=== PATIENT | female | born 1950 | race African-American/Black ===

== ENCOUNTER 2018-10-21 09:31 | Day surgery (SDC) | payer BC ==
[2018-10-16 14:56] VITALS: BMI 23.1
[2018-10-21] MEDS ORDERED: PROPOFOL 20 ML ONE ×3 (10:00→11:46)
[2018-10-21 12:10] VITALS: TEMP 97.5
[2018-10-21 12:26] VITALS: BP 122/72; PULSE 66
--- NOTE | 2018-10-23 16:03 | PATH ---
Surgical Pathology Report Patient Name: BUSTER CAMACHO [facility]. Rec. #: [id number] /Age/Gender: 1950 (Age: 68) / F Account: [id number] Location: [facility] Taken: 10/21/2018 Received: 10/21/2018 Reported: 10/23/2018 Physicians: Galileo Hopper M.D. Specimen(s) Received A: BX RIGHT COLON POLYP B: TRANSVERSE COLON POLYP C: SIGMOID POLYPS D: BX OF RECTOSIGMOID POLYPS Clinical History History of polyps Postoperative diagnosis: Diverticulosis, polyps Final Diagnosis A. PROXIMAL RIGHT COLON, POLYP, BIOPSY: TUBULAR ADENOMA. B. TRANSVERSE COLON, POLYP, POLYPECTOMY: TUBULAR ADENOMA. C. SIGMOID, POLYPS, POLYPECTOMY: HYPERPLASTIC POLYPS. D. RECTOSIGMOID, POLYPS, POLYPECTOMY: HYPERPLASTIC POLYPS. Electronically Signed Ruth Rios M.D. Gross Description A. Received in formalin, labeled "biopsy proximal right colon polyp" are 2 frazier, irregular portions of soft tissue averaging 0.2 cm. in greatest dimension. The specimens are submitted in toto in one cassette. B. Received in formalin, labeled "transverse colon polyp" is a frazier, irregular portion of soft tissue measuring 0.4 cm. in greatest dimension. The specimen is submitted in toto in one cassette. C. Received in formalin, labeled "sigmoid polyps" are 5 frazier, polypoid portions of soft tissue ranging from 0.8-1.0 cm. in greatest dimension. The specimens are submitted in toto in one cassette. D. Received in formalin, labeled "biopsy rectal sigmoid polyps" are 3 frazier, irregular to polypoid portions of soft tissue ranging from 0.4-1.1 cm. in greatest dimension. The specimens are submitted in toto in one cassette. 10/22/2018 saudi10/22/2018
== END 2018-10-21 12:27 | disposition home or self-care (01) ==
LOC: FASU-ENDO 09:31
PROVIDERS: ATTEND Internal Medicine Gastroenterology
PROC: 0DBN8ZX Excision of Sigmoid Colon, Via Natural or Artificial Opening Endoscopic, Diagnostic (ICD-10-PCS; 2018-10-21)
PROC: 0DBK8ZX Excision of Ascending Colon, Via Natural or Artificial Opening Endoscopic, Diagnostic (ICD-10-PCS; 2018-10-21)
PROC: 0DBP8ZX Excision of Rectum, Via Natural or Artificial Opening Endoscopic, Diagnostic (ICD-10-PCS; principal; 2018-10-21 11:04)
DX: Z86.010 Personal history of colon polyps (principal); K57.30 Diverticulosis of large intestine without perforation or abscess without bleeding; K64.8 Other hemorrhoids; D12.2 Benign neoplasm of ascending colon; D12.3 Benign neoplasm of transverse colon; D12.5 Benign neoplasm of sigmoid colon; D12.7 Benign neoplasm of rectosigmoid junction
CPT/HCPCS: 88305-TC

== ENCOUNTER 2019-01-18 13:50 | Emergency (ER) | payer BC ==
--- NOTE | 2019-01-18 13:51 | PDOC ---
History of Present Illness - General History Source: Patient Exam Limitations: No Limitations - History of Present Illness Initial Comments: 01/18/19 14:14 The patient is a 68 year old female, with a significant past medical history of seasonal/environmental rhinitis, osteoporosis, partial gastrectomy who presents to the emergency department with knee pain since this morning. The patient notes she was laying in bed, turned, and felt something weird on her knee. The patient reports she went to the bathroom afterwards and could not walk back. The patient reports her pain is aggravated when standing, walking, and straightening knee to walk. The patient notes she never experienced anything like this before. Allergies: NKDA, cats, dust, mold, trees. Past surgical history: PARTIAL GASTRECTOMY 1995 Social history: social drinker. Current everyday smoker. PCP: Ruthy Martines <Andrew Reeves - Last Filed: 01/18/19 14:14> <Fanny Bolden - Last Filed: 01/18/19 14:59> - General Chief Complaint: Pain Stated Complaint: RT KNEE PAIN Time Seen by Provider: 01/18/19 13:51 Past History <Andrew Reeves - Last Filed: 01/18/19 14:14> - Past Medical History Anemia: No (IN THE PAST ,HAS RECEIVED BLOOD 1995) Asthma: No Cancer: No Cardiac Disorders: No CVA: No COPD: No CHF: No Dementia: No Diabetes: No GI Disorders: Yes (H/O POLYPS) Disorders: No HTN: No Hypercholesterolemia: No Liver Disease: No Seizures: No Thyroid Disease: No - Surgical History Abdominal Surgery: Yes (PARTIAL GASTRECTOMY 1995,HAD "HOLE IN STOMACH") Appendectomy: No Cardiac Surgery: No Cholecystectomy: No GI Surgery: Yes (PARTIAL GASTRECTOMY 1995) Lung Surgery: No Neurologic Surgery: No Orthopedic Surgery: No - Suicide/Smoking/Psychosocial Hx Smoking History: Current every day smoker Have you smoked in the past 12 months: Yes Number of Cigarettes Smoked Daily: 7 'Breaking Loose' booklet given: 02/27/15 Hx Alcohol Use: Yes (2/DAY) Drug/Substance Use Hx: No Substance Use Type: Alcohol Hx Substance Use Treatment: No <Fanny Bolden - Last Filed: 01/18/19 14:59> - Past Medical History Allergies/Adverse Reactions: Allergies Allergy/AdvReac Type Severity Reaction Status Date / Time No Known Drug Allergies Allergy Verified 01/18/19 13:51 CATS Allergy Mild Itching Uncoded 01/18/19 13:51 DUST Allergy Mild Itching Uncoded 01/18/19 13:51 MILDEW Allergy Mild Itching Uncoded 01/18/19 13:51 MOLD Allergy Mild Itching Uncoded 01/18/19 13:51 TREES Allergy Mild Itching Uncoded 01/18/19 13:51 Home Medications: Ambulatory Orders Ascorbic Acid [Vitamin C] 1,000 mg PO DAILY 10/03/13 Calcium 500 mg PO DAILY 10/03/13 Cholecalciferol (Vitamin D3) [Vitamin D] 1,000 unit PO DAILY 10/03/13 Multivitamin [Multi-Day Vitamins] 1 tab PO DAILY 10/03/13 Cetirizine HCl/Pseudoephedrine [Zyrtec-D Tablet -] 1 tab PO DAILY 02/27/15 Magnesium 200 mg PO DAILY 10/16/18 [place]-3 Fatty Acids/Fish Oil [Fish Oil 1,000 mg Capsule] 1 each PO DAILY Potassium Gluconate [Potassium] 99 mg PO DAILY 10/16/18 Acetaminophen [Tylenol] 650 mg PO ASDIR 01/18/19 Ibuprofen [Advil -] 200 mg PO ASDIR 01/18/19 Review of Systems - Review of Systems Able to Perform ROS?: Yes Comments:: 01/18/19 14:14 GENERAL/CONSTITUTIONAL: No fever or chills. No weakness. HEAD, EYES, EARS, NOSE AND THROAT: No change in vision. No ear pain or discharge. No sore throat. MUSCULOSKELETAL: (+) knee pain. No joint or muscle swelling. No neck or back pain. SKIN: No rash NEUROLOGIC: No headache, vertigo, loss of consciousness, or change in strength/ sensation. HEMATOLOGIC/LYMPHATIC: No anemia, easy bleeding, or history of blood clots. ALLERGIC/IMMUNOLOGIC: No hives or skin allergy. <Andrew Reeves - Last Filed: 01/18/19 14:14> *Physical Exam - Vital Signs Last Vital Signs Temp Pulse Resp BP Pulse Ox 98.7 F 97 H 18 154/91 98 01/18/19 13:50 01/18/19 13:50 01/18/19 13:50 01/18/19 13:50 01/18/19 13:50 <Andrew Reeves - Last Filed: 01/18/19 14:14> - Physical Exam Comments: GENERAL: Awake, alert, and fully oriented, in no acute distress HEAD: No signs of trauma EYES: PERRLA, EOMI, sclera anicteric, conjunctiva clear EXTREMITIES: R knee with pain elicited upon standing. Slight laxity of LCL, but no pain on stressing the ligament. MCL, ACL, and PCL intact. Rehana's test negative. no effusion. Remainder of extremities with normal range of motion, no edema. No clubbing or cyanosis. No cords, erythema, or tenderness NEUROLOGICAL: Cranial nerves II through XII grossly intact. Normal speech, normal gait. Motor and sensation intact SKIN: Warm, Dry, normal turgor, no rashes or lesions noted. <Fanny Bolden - Last Filed: 01/18/19 14:59> Moderate Sedation - Procedure Monitoring Vital Signs: Procedure Monitoring Vital Signs Temperature 98.7 F 01/18/19 13:50 Pulse Rate 97 H 01/18/19 13:50 Respiratory Rate 18 01/18/19 13:50 Blood Pressure 154/91 01/18/19 13:50 O2 Sat by Pulse Oximetry (%) 98 01/18/19 13:50 <Andrew Reeves - Last Filed: 01/18/19 14:14> Procedures - Splinting Splint Location: Right: Knee Pre-Proc Neuro Vasc Exam: normal Post-Proc Neuro Vasc Exam: normal Len Bandage: 3" Progress: 01/18/19 14:59 Pt crutch trained to assist with weight bearing. <Fanny Bolden - Last Filed: 01/18/19 14:59> *DC/Admit/Observation/Transfer - Attestations Scribe Attestion: 01/18/19 14:15 Documentation prepared by Andrew Reeves, acting as medical pathologist for Fanny Bolden MD, MD <Andrew Reeves - Last Filed: 01/18/19 14:14> <Fanny Bolden - Last Filed: 01/18/19 14:59> Diagnosis at time of Disposition: Knee sprain Qualifiers: Encounter type: initial encounter Involved ligament of knee: unspecified ligament Laterality: unspecified laterality Qualified Code(s): S83.90XA - Sprain of unspecified site of unspecified knee, initial encounter - Discharge Dispostion Disposition: HOME Condition at time of disposition: Stable - Referrals - Patient Instructions Printed Discharge Instructions: DI for Knee Sprain, DI for Knee Pain - Post Discharge Activity
[2019-01-18 14:00] VITALS: BP 154/91; PULSE 97; TEMP 98.7; BMI 23.3
[2019-01-18] MEDS ORDERED: ACETAMINOPHEN 500 MG TABLET (FP) PO ONE (14:06)
[2019-01-18] MEDS ORDERED: ACETAMINOPHEN 500 MG TABLET (FP) ONE (14:21)
[2019-01-18] MEDS ORDERED: oxyCODONE HCL 5 MG TABLET PO ONE (14:29)
[2019-01-18] MEDS ORDERED: oxyCODONE HCL 5 MG TABLET ONE (14:35)
== END 2019-01-18 15:05 | disposition home or self-care (01) ==
LOC: FER 13:50
DX: S83.90XA Sprain of unspecified site of unspecified knee, initial encounter (principal); F17.210 Nicotine dependence, cigarettes, uncomplicated
CPT/HCPCS: 73562-TC-RT-FY; 99283-25

== ENCOUNTER 2022-05-18 06:14 | Day surgery (SDC) | payer OTHER ==
[2022-05-12 16:05] VITALS: BMI 19.4
[2022-05-18] MEDS: CYCLOPENTOLATE 2% OPHTH SOLN 2 ML BOTTLE ONE ×3 (07:15→07:25)
[2022-05-18] MEDS: CIPROFLOXACIN 0.3% EYE DROPS 5 ML BOTTLE ONE ×3 (07:15→07:25)
[2022-05-18] MEDS: PHENYLEPHRINE 2.5% OPHTH SOLN 15 ML BOTTLE ONE ×3 (07:15→07:25)
[2022-05-18] MEDS: TROPICAMIDE 1% OPHTH SOLN 15 ML BOTTLE ONE ×3 (07:15→07:25)
[2022-05-18] MEDS ORDERED: EPINEPHrine/PF 1 MG/1 ML (1:1,000) AMPULE ONE (07:22)
[2022-05-18] MEDS ORDERED: LIDOCAINE 1% P/F 10 MG/ML VIAL ONE (07:22)
[2022-05-18] MEDS ORDERED: BSS (NA/CA/MG/K) BALANCED SALT SOLUTION OPHTH SOLN 15 ML BOTTLE ONE (07:23)
[2022-05-18] MEDS ORDERED: NEO/POLYMYX B SULF/DEXAMETH OPHTHALMIC 5ML BOTTLE ONE (07:23)
[2022-05-18] MEDS ORDERED: TETRACAINE 0.5% OPHTH SOLN 2 ML BOTTLE ONE (07:23)
[2022-05-18] MEDS ORDERED: CARBACHOL 0.01% INTRA-OCULAR 1.5 ML VIAL ONE (07:23)
[2022-05-18] MEDS ORDERED: MIDAZOLAM HCL 2 MG/2 ML SINGLE DOSE VIAL ONE (08:17)
[2022-05-18 09:16] VITALS: BP 133/84; PULSE 84; TEMP 97.6
== END 2022-05-18 09:47 | disposition home or self-care (01) ==
LOC: FASU 06:14
PROVIDERS: ATTEND Ophthalmology
PROC: 08RK3JZ Replacement of Left Lens with Synthetic Substitute, Percutaneous Approach (ICD-10-PCS; principal; 2022-05-18 08:30)
DX: H26.8 Other specified cataract (principal)
CPT/HCPCS: 66984; V2632

== ENCOUNTER 2022-07-27 08:56 | Day surgery (SDC) | payer OTHER ==
[2022-07-24 18:08] VITALS: BMI 19.4
[2022-07-27] MEDS ORDERED: NEO/POLYMYX B SULF/DEXAMETH OPHTHALMIC 5ML BOTTLE ONE (10:10)
[2022-07-27] MEDS ORDERED: CARBACHOL 0.01% INTRA-OCULAR 1.5 ML VIAL ONE (10:10)
[2022-07-27] MEDS ORDERED: BSS (NA/CA/MG/K) BALANCED SALT SOLUTION OPHTH SOLN 15 ML BOTTLE ONE (10:10)
[2022-07-27] MEDS: CYCLOPENTOLATE 2% OPHTH SOLN 2 ML BOTTLE ONE ×3 (10:35→10:45)
[2022-07-27] MEDS: CIPROFLOXACIN 0.3% EYE DROPS 5 ML BOTTLE ONE ×3 (10:35→10:45)
[2022-07-27] MEDS: TROPICAMIDE 1% OPHTH SOLN 15 ML BOTTLE ONE ×3 (10:35→10:45)
[2022-07-27] MEDS: PHENYLEPHRINE 2.5% OPHTH SOLN 15 ML BOTTLE ONE ×3 (10:35→10:45)
[2022-07-27] MEDS ORDERED: MIDAZOLAM HCL 2 MG/2 ML SINGLE DOSE VIAL ONE (11:42)
[2022-07-27 13:05] VITALS: RESP 19
[2022-07-27 13:22] VITALS: BP 122/84; PULSE 82; TEMP 97.4
== END 2022-07-27 13:22 | disposition home or self-care (01) ==
LOC: FASU 08:56
PROVIDERS: ATTEND Ophthalmology
PROC: 08RJ3JZ Replacement of Right Lens with Synthetic Substitute, Percutaneous Approach (ICD-10-PCS; principal; 2022-07-27 11:55)
DX: H26.8 Other specified cataract (principal)
CPT/HCPCS: 66984; V2632

== ENCOUNTER 2022-11-01 07:47 | Day surgery (SDC) | payer OTHER ==
[2022-10-25 15:48] VITALS: BMI 19.1
[2022-11-01 08:09] VITALS: RESP 16
[2022-11-01 09:56] VITALS: TEMP 98.6
[2022-11-01 10:59] VITALS: BP 122/82; PULSE 82
== END 2022-11-01 11:35 | disposition home or self-care (01) ==
LOC: FASU-ENDO 07:47
PROVIDERS: ATTEND Internal Medicine Gastroenterology
PROC: 0DBL8ZX Excision of Transverse Colon, Via Natural or Artificial Opening Endoscopic, Diagnostic (ICD-10-PCS; 2022-11-01)
PROC: 0DBN8ZX Excision of Sigmoid Colon, Via Natural or Artificial Opening Endoscopic, Diagnostic (ICD-10-PCS; 2022-11-01)
PROC: 0DBC8ZX Excision of Ileocecal Valve, Via Natural or Artificial Opening Endoscopic, Diagnostic (ICD-10-PCS; 2022-11-01)
PROC: 0DBK8ZX Excision of Ascending Colon, Via Natural or Artificial Opening Endoscopic, Diagnostic (ICD-10-PCS; principal; 2022-11-01 08:54)
DX: Z12.11 Encounter for screening for malignant neoplasm of colon (principal); D12.2 Benign neoplasm of ascending colon; D12.3 Benign neoplasm of transverse colon; D12.0 Benign neoplasm of cecum; K63.5 Polyp of colon
CPT/HCPCS: 88305-TC